=== PATIENT | female | born 1940 | race Caucasian/White ===

== ENCOUNTER 2020-07-28 23:31 | Inpatient (IN) ==
[2020-07-29 00:36] LABS: Basophils % 0.1 % (0.0-0.8); Hemoglobin 13.6 GM/DL (12.0-16.0); Immature Granulocytes % 0.6 %; Immature Granulocytes Absolute 0.15 #; Lymphocytes # 1.3 10*3/uL (1.4-4.0); Lymphocytes % 4.9 % (21.3-54.2); Mean Corpuscular HGB Conc 33.2 GM/DL (32-36); Mean Corpuscular Volume 98.3 FL (87-102); Mean Platelet Volume 10.4 FL (9.6-12.0); Neutrophils % 86.4 % (38.7-73.9); Platelet Count 350 T/CUMM (130-400); Red Blood Count 4.17 MC/CUMM (3.8-5.5); White Blood Count 25.8 T/CUMM (4-12)
[2020-07-29 00:47] LABS: Albumin 3.9 G/DL (3.4-5.0); Bilirubin,Total 0.6 MG/DL (0.2-1.0); Osmolality,Calculated 272.1 MOS/KG (273-304); Total Protein 7.2 G/DL (6.4-8.2)
[2020-07-29 01:34] LABS: Lymphocytes 9 % (20-55); Segmented Neutrophils 89 % (50-85); Total Cells Counted 100
[2020-07-29 01:35] LABS: Platelet Estimate Adequate
[2020-07-29 02:15] LABS: Bilirubin,Urine Negative (Negative); Blood, Urine Negative (Negative); Glucose,Urine (UA) Negative (Negative); Ketones,Urine Negative (Negative); Mucus,Urine Occasional /LPF (Occasional); Nitrite,Urine Negative (Negative); Protein,Urine Negative; RBC,Urine 1 /HPF (0-4); Squamous Epithelial Cell,Urine Occasional /HPF (0-10); Urine Appearance CLEAR (Clear); Urine Color Yellow (Yellow); Urine Urobilinogen < 2.0 EU/DL (0.2-1.0); WBC,Urine <1 /HPF (0-6)
[2020-07-29] MEDS ORDERED: ONDANSETRON 4 MG/2 ML VIAL IV STA (02:23)
[2020-07-29] MEDS ORDERED: DEXTROSE 50% 25 GM/50 ML VIAL IV PRN (02:57)
[2020-07-29] MEDS ORDERED: GLUCAGON 1 MG VIAL IM PRN (02:57)
[2020-07-29] MEDS ORDERED: ACETAMINOPHEN 325 MG TABLET PO PRN (02:57)
[2020-07-29] MEDS ORDERED: POLYETHYLENE GLYCOL POWDER 17 GM PACK PO PRN (03:02)
[2020-07-29] MEDS: SODIUM CHLORIDE 0.9% 1,000 ML IV SCH ×2 (03:38→21:16)
[2020-07-29] MEDS ORDERED: cefTRIAXone 2,000 MG in SYRINGE 1 EACH IV ONE (04:00)
[2020-07-29] MEDS: metroNIDAZOLE INJ 500 MG in PREMIX 1 EACH IV SCH ×3 (04:15→21:16)
[2020-07-29 04:38] LABS: Basophils % 0.1 % (0.0-0.8); Hematocrit 39.3 VOL% (35.7-47.0); Hemoglobin 13.1 GM/DL (12.0-16.0); Immature Granulocytes % 0.6 %; Immature Granulocytes Absolute 0.17 #; Lymphocytes # 1.1 10*3/uL (1.4-4.0); Lymphocytes % 4.2 % (21.3-54.2); Mean Corpuscular HGB Conc 33.3 GM/DL (32-36); Mean Corpuscular Volume 97.3 FL (87-102); Mean Platelet Volume 10.4 FL (9.6-12.0); Monocytes % 5.8 % (1.7-12.7); Neutrophils % 89.3 % (38.7-73.9); Platelet Count 311 T/CUMM (130-400); Red Blood Count 4.04 MC/CUMM (3.8-5.5); Red Cell Distribution Width 12.1 % (9.3-17.3); White Blood Count 26.2 T/CUMM (4-12)
[2020-07-29 04:58] LABS: Calcium 8.7 MG/DL (8.5-10.1); Osmolality,Calculated 270.2 MOS/KG (273-304); Potassium 4.3 MMOL/L (3.5-5.1)
[2020-07-29 04:59] LABS: Band Neutrophils 3 % (0-10); Hypochromasia 1+; Lymphocytes 4 % (20-55); Segmented Neutrophils 88 % (50-85); Total Cells Counted 100
[2020-07-29 05:00] LABS: Microcytosis Slight; Platelet Estimate Normal
[2020-07-29] MEDS: PANTOPRAZOLE 40 MG TABLET PO SCH (08:45)
[2020-07-29] MEDS: POLYETHYLENE GLYCOL POWDER 17 GM PACK PO SCH ×4 (08:45→21:16)
[2020-07-29] MEDS ORDERED: ENOXAPARIN 30 MG/0.3 ML SYRINGE SUBCUT SCH (09:00)
[2020-07-29] MEDS ORDERED: DOCUSATE SODIUM 100 MG CAPSULE PO SCH (09:00)
[2020-07-29] MEDS: cefTRIAXone 2,000 MG in SODIUM CHLORIDE 0.9% 100 ML IV SCH (09:06)
[2020-07-30] MEDS: metroNIDAZOLE INJ 500 MG in PREMIX 1 EACH IV SCH ×3 (04:54→20:25)
[2020-07-30] MEDS: carvediloL 6.25 MG TABLET PO SCH ×2 (09:25→16:01)
[2020-07-30] MEDS: cefTRIAXone 2,000 MG in SODIUM CHLORIDE 0.9% 100 ML IV SCH (09:26)
[2020-07-30] MEDS: POLYETHYLENE GLYCOL POWDER 17 GM PACK PO SCH ×2 (09:27→14:21)
[2020-07-30] MEDS: PANTOPRAZOLE 40 MG TABLET PO SCH (09:28)
[2020-07-30 10:07] LABS: Basophils % 0.1 % (0.0-0.8); Hematocrit 33.5 VOL% (35.7-47.0); Hemoglobin 11.3 GM/DL (12.0-16.0); Immature Granulocytes % 0.5 %; Immature Granulocytes Absolute 0.07 #; Lymphocytes # 1.4 10*3/uL (1.4-4.0); Lymphocytes % 9.9 % (21.3-54.2); Mean Corpuscular HGB Conc 33.7 GM/DL (32-36); Mean Corpuscular Volume 98.5 FL (87-102); Mean Platelet Volume 10.9 FL (9.6-12.0); Neutrophils % 78.5 % (38.7-73.9); Platelet Count 238 T/CUMM (130-400); Red Cell Distribution Width 12.7 % (9.3-17.3); White Blood Count 14.1 T/CUMM (4-12)
[2020-07-30] MEDS: SODIUM CHLORIDE 0.9% 1,000 ML IV SCH (10:36)
[2020-07-30] MEDS: ONDANSETRON 4 MG/2 ML VIAL IV PRN ×3 (11:03→21:15)
[2020-07-30] MEDS: BISACODYL 5 MG TABLET PO SCH ×2 (15:50→23:41)
[2020-07-30] MEDS ORDERED: PROMETHAZINE 25 MG TABLET PO PRN (16:08)
[2020-07-30] MEDS ORDERED: NICOTINE 21 MG/24 HR PATCH TRANSDERM PRN (17:00)
[2020-07-30] MEDS ORDERED: POLYETHYLENE GLYCOL POWDER 255 GM BOTTLE PO ONE (18:00)
[2020-07-30] MEDS ORDERED: MAGNESIUM CITRATE 300 ML BOTTLE PO ONE (21:00)
[2020-07-30] MEDS ORDERED: MORPHINE 4 MG/1 ML VIAL IV PRN (21:22)
[2020-07-31] MEDS: SODIUM CHLORIDE 0.9% 1,000 ML IV SCH (03:00)
[2020-07-31] MEDS: metroNIDAZOLE INJ 500 MG in PREMIX 1 EACH IV SCH ×3 (04:30→23:35)
[2020-07-31 05:59] LABS: Basophils % 0.1 % (0.0-0.8); Eosinophils % 0.1 % (0.00-10.9); Hematocrit 33.9 VOL% (35.7-47.0); Hemoglobin 11.2 GM/DL (12.0-16.0); Immature Granulocytes % 0.6 %; Immature Granulocytes Absolute 0.07 #; Lymphocytes # 2.1 10*3/uL (1.4-4.0); Lymphocytes % 16.3 % (21.3-54.2); Mean Corpuscular Volume 99.1 FL (87-102); Mean Platelet Volume 11.2 FL (9.6-12.0); Monocytes % 9.1 % (1.7-12.7); Neutrophils % 73.8 % (38.7-73.9); Platelet Count 256 T/CUMM (130-400); Red Blood Count 3.42 MC/CUMM (3.8-5.5); Red Cell Distribution Width 12.3 % (9.3-17.3); White Blood Count 12.7 T/CUMM (4-12)
[2020-07-31] MEDS: BISACODYL 5 MG TABLET PO SCH (06:24)
[2020-07-31 06:38] LABS: Calcium 8.2 MG/DL (8.5-10.1); Osmolality,Calculated 276.4 MOS/KG (273-304); Potassium 3.5 MMOL/L (3.5-5.1)
[2020-07-31] MEDS ORDERED: LACTATED RINGERS 1,000 ML IV SCH (07:30)
[2020-07-31] MEDS ORDERED: LIDOCAINE 2% 5 ML VIAL ONE (08:56)
[2020-07-31] MEDS ORDERED: ONDANSETRON 4 MG/2 ML VIAL ONE (08:56)
[2020-07-31] MEDS ORDERED: propofoL 200 MG/20 ML VIAL IV ONE (08:56)
[2020-07-31] MEDS: carvediloL 6.25 MG TABLET PO SCH ×2 (10:24→17:24)
[2020-07-31] MEDS: PANTOPRAZOLE 40 MG TABLET PO SCH ×2 (10:24→20:38)
[2020-07-31] MEDS: cefTRIAXone 2,000 MG in SODIUM CHLORIDE 0.9% 100 ML IV SCH (10:25)
[2020-07-31] MEDS: ONDANSETRON 4 MG/2 ML VIAL IV PRN (13:14)
[2020-07-31 16:13] LABS: ABG Base Excess -0.9 MMOL/L (-2.5-2.5); ABG HCO3 23.6 MMOL/L (20-26); ABG Oxygen Saturation 94.6 % (95-100); ABG PCO2 34.6 MM HG (35-48); ABG PH 7.428 (7.35-7.45); ABG PO2 70.5 MM HG (80-95); ABG TCO2 20.4 MMOL/L (23-27)
[2020-07-31] MEDS: FUROSEMIDE 20 MG/2 ML VIAL IV SCH (17:24)
[2020-07-31] MEDS: GLYCOPYRROLATE 1 MG TABLET PO SCH (20:35)
[2020-07-31] MEDS: BUDESONIDE/FORMOTEROL 160-4.5 INHALER 6 GM INH SCH (20:37)
[2020-08-01 05:29] LABS: Basophils % 0.1 % (0.0-0.8); Eosinophils % 0.1 % (0.00-10.9); Hematocrit 33.1 VOL% (35.7-47.0); Immature Granulocytes % 0.9 %; Immature Granulocytes Absolute 0.12 #; Lymphocytes # 2.4 10*3/uL (1.4-4.0); Lymphocytes % 17.4 % (21.3-54.2); Mean Corpuscular HGB Conc 33.2 GM/DL (32-36); Mean Corpuscular Volume 97.6 FL (87-102); Monocytes % 10.4 % (1.7-12.7); Neutrophils % 71.1 % (38.7-73.9); Platelet Count 280 T/CUMM (130-400); Red Blood Count 3.39 MC/CUMM (3.8-5.5); Red Cell Distribution Width 12.3 % (9.3-17.3); White Blood Count 13.5 T/CUMM (4-12)
[2020-08-01 05:55] LABS: Calcium 8.1 MG/DL (8.5-10.1); Osmolality,Calculated 273.5 MOS/KG (273-304); Potassium 3.4 MMOL/L (3.5-5.1)
[2020-08-01] MEDS: metroNIDAZOLE INJ 500 MG in PREMIX 1 EACH IV SCH (06:17)
[2020-08-01] MEDS: carvediloL 6.25 MG TABLET PO SCH (08:21)
[2020-08-01] MEDS: GLYCOPYRROLATE 1 MG TABLET PO SCH (08:21)
[2020-08-01] MEDS: PANTOPRAZOLE 40 MG TABLET PO SCH (08:21)
[2020-08-01] MEDS: FUROSEMIDE 20 MG/2 ML VIAL IV SCH (08:21)
[2020-08-01] MEDS: cefTRIAXone 2,000 MG in SODIUM CHLORIDE 0.9% 100 ML IV SCH (08:23)
[2020-08-01] MEDS: BUDESONIDE/FORMOTEROL 160-4.5 INHALER 6 GM INH SCH (08:23)
[2020-08-01] MEDS ORDERED: MESALAMINE 1000 MG SUPP RECTAL ONE (10:00)
[2020-08-01] MEDS ORDERED: POTASSIUM CHLORIDE 8 MEQ CAPSULE PO ONE (10:05)
[2020-08-01] MEDS ORDERED: MESALAMINE ENEMA 4 GM/60 ML BOTTLE RECTAL ONE (11:06)
[2020-08-01 11:52] VITALS: BP 128/63
[2020-08-01] MEDS ORDERED: MESALAMINE 1000 MG SUPP RECTAL SCH (21:00)
== END 2020-08-01 14:02 | disposition home or self-care (01) | DRG 386 ==
LOC: EDUNIT# → EDBD → N.ED 23:31 → OBSVTOIN 07-29 02:57 → N.EDINP 07-29 02:57 → INTOOBSV 07-29 02:57 → SUATTDRO 07-29 02:57 → N.5E 07-29 04:43
PROVIDERS: ADMIT Internal Medicine; ATTEND Internal Medicine